=== PATIENT | female | born 1990 ===

== ENCOUNTER 2018-06-11 22:12 | Emergency (ER) | payer SELFPAY ==
[2018-06-11] MEDS ORDERED: Naproxen 500 MG TAB PO ONE ×2 (23:33→23:39)
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
[2018-06-12 02:17] VITALS: BP 105/66; PULSE 74; RESP 16; TEMP 98.5; O2SAT 100
--- NOTE | 2018-06-12 15:57 | RAD ---
Date of service: 06/12/2018 PROCEDURE: Radiographs of the right elbow. HISTORY: Elbow COMPARISON: No prior. FINDINGS: BONES: Normal. No fracture. JOINTS: Normal. No osteoarthritis. SOFT TISSUES: Normal. JOINT EFFUSION: None. OTHER FINDINGS: None. IMPRESSION: Unremarkable radiographs of the right elbow.
--- NOTE | 2018-06-12 16:02 | RAD ---
Date of service: 06/12/2018 PROCEDURE: Cervical Spine Radiographs. HISTORY: Pain. COMPARISON: None FINDINGS: Note that the odontoid is partially obscured by overlying incisor teeth in the open-mouth projection. BONES: No evidence of acute fractures within limitation of the exam. Straightening of the normal size cervical lordosis could be due to patient positioning however underlying element of muscle spasm may contribute. DISC SPACES: Normal. SOFT TISSUES: Normal. No prevertebral soft tissue swelling. OTHER FINDINGS: None. IMPRESSION: No fracture seen within limitation of this exam. Straightening of the normal cervical lordosis. Consider follow-up CT scan if occult fracture suspected clinically
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
--- NOTE | 2018-06-12 18:02 | CARD ---
APPROVED REPORT Date of service: 06/12/2018 EKG Measurement Heart [id number] <Conclusion> Normal sinus rhythm Normal Electrocardiogram
== END 2018-06-12 02:45 | disposition home or self-care (01) ==
LOC: H.ER 22:12
DX: R07.89 Other chest pain (principal); S16.1XXA Strain of muscle, fascia and tendon at neck level, initial encounter; S50.01XA Contusion of right elbow, initial encounter; V43.62XA Car passenger injured in collision with other type car in traffic accident, initial encounter; Y92.410 Unspecified street and highway as the place of occurrence of the external cause